=== PATIENT | female | born 1965 | race African-American/Black ===

== ENCOUNTER 2018-07-10 23:46 | Inpatient (IN) | payer MEDICAID, OTHER ==
[~2018-07-10] VITALS: Ht 165.1 cm; Wt 92.3 kg
[~2018-07-10 23:46] MED LIST: CLON0.1T; LASIX; LISINOPRIL; LOVASTATIN; NORMADYNE; PROCARDIA
[2018-07-11] MEDS ORDERED: ALBUTEROL (0.083%) 2.5MG/3ML NEB HHN STA (00:04)
[2018-07-11] MEDS ORDERED: IPRATROPIUM BROMIDE (0.02%) 0.5MG/2.5ML NEB HHN STA (00:04)
[2018-07-11 00:37] LABS: BASOPHILS % 0.6 % (0.0-2.0); EOSINOPHILS % 2.3 % (0.0-5.0); HEMOGLOBIN. 14.3 g/dL (12.0-16.0); LYMPHOCYTES % 33.1 % (20.0-50.0); MEAN CORPUSCULAR HEMOGLOBIN 29.2 pg (28.0-32.0); MEAN CORPUSCULAR VOLUME 85.6 fL (81.0-99.0); MEAN PLATELET VOLUME 9.7 fl (7.4-10.4); MONOCYTES % 7.7 % (2.0-8.0); NEUTROPHILS % 56.3 % (40.0-76.0); PLATELET 227 x1000/uL (130-400); RED CELL DISTRIBUTION WIDTH 14.9 % (11.6-14.6)
[2018-07-11 00:43] LABS: CHLORIDE 109 mEq/L (98-107)
[2018-07-11 01:00] LABS: D-DIMER 2.03 mg/L FEU (<0.50); INR 1.1; PARTIAL THROMBOPLASTIN TIME 25.1 sec (23.4-31.0); PROTHROMBIN TIME 10.7 sec (9.1-11.1)
[2018-07-11] MEDS ORDERED: FUROSEMIDE 40MG/4ML VIAL IVP NR (02:15)
[2018-07-11] MEDS ORDERED: IOHEXOL-350 100 ML BOTTLE ONE (03:40)
[2018-07-11] MEDS ORDERED: CEFTRIAXONE 1 G PREMIX 50 ML IV NR (04:00)
[2018-07-11] MEDS ORDERED: AZITHROMYCIN 500 MG in DEXT 5% WATER 250 ML IV NR (04:00)
[2018-07-11] MEDS ORDERED: CLONIDINE 0.1MG TABLET PO PRN ×2 (06:30→10:30)
[2018-07-11] MEDS ORDERED: DIPHENHYDRAMINE 50MG/ML VIAL IV PRN (10:30)
[2018-07-11] MEDS ORDERED: ACETAMINOPHEN 650MG SUPP PR PRN (10:30)
[2018-07-11] MEDS ORDERED: ONDANSETRON HCL 4MG/2ML INJ IV PRN (10:30)
[2018-07-11] MEDS ORDERED: HYDROCODONE/ACETAMINOPHEN 5/325MG TABLET PO PRN (10:30)
[2018-07-11] MEDS ORDERED: ACETAMINOPHEN 325MG TABLET PO PRN (10:30)
[2018-07-11] MEDS ORDERED: IPRATROPIUM/ALBUTEROL 0.5-3(2.5)MG/3ML NEB INH PRN (10:30)
[2018-07-11] MEDS ORDERED: MAGNESIUM/ALUMINUM HYDROXIDE/SIMETHICONE 30ML UDC PO PRN (10:30)
[2018-07-11] MEDS ORDERED: NA PHOS,M-B/NA PHOS,DI-BA ENEMA 118ML PR PRN (10:30)
[2018-07-11] MEDS ORDERED: FUROSEMIDE 40MG/4ML VIAL IV NR (11:30)
[2018-07-11] MEDS: METHYLPREDNISOLONE SOD SUCC 40 MG/ML VIAL IV SCH (12:21)
[2018-07-11] MEDS ORDERED: AMLO5TAB88 MT (12:32)
[2018-07-11] MEDS ORDERED: HYDR-459 MT ×2 (12:32→17:19)
[2018-07-11] MEDS: IPRATROPIUM/ALBUTEROL 0.5-3(2.5)MG/3ML NEB INH SCH ×2 (12:35→20:08)
[2018-07-11 14:04] LABS: BG BASE EXCESS 1.6 mmol/L (-2.0-2.0); BG CARBOXYHEMOGLOBIN 1.4 % (0.5-1.5); BG DEOXYHEMOGLOBIN 6.7 % (0.0-5.0); BG FRACTION INSPIRED OXYGEN 21; BG HCO3 ACT 22.6 mmol/L (22.0-26.0); BG METHEMOGLOBIN 0.3 % (0.0-1.5); BG OXYGEN SATURATION 93.2 % (92.0-98.5); BG OXYHEMOGLOBIN 91.6 % (94.0-97.0); BG PH 7.541 (7.350-7.450); BG SAMPLE SITE RIGHT RADIAL; BG TOTAL HEMOGLOBIN 15.9 g/dL (12.0-18.0); BG VENT MODE ROOM AIR
[2018-07-11 14:52] LABS: HEPATITIS B SURFACE ANTIGEN NEGATIVE
[2018-07-11 15:22] LABS: HEPATITIS A AB IGM NEGATIVE (NEGATIVE)
[2018-07-11 17:21] VITALS: BP 139/94
[2018-07-11] MEDS ORDERED: ENOXAPARIN 40MG/0.4ML SYR SUBCUT SCH (17:30)
[2018-07-11] MEDS: ENOXAPARIN 30MG/0.3ML SYR SUBCUT SCH (18:16)
[2018-07-11 20:00] VITALS: BP 139/83
[2018-07-11] MEDS: CARVEDILOL 3.125 MG TABLET PO SCH (20:32)
[2018-07-12] VITALS (7 sets, daily range): BP systolic 128–147; BP diastolic 81–91
[2018-07-12] MEDS: METHYLPREDNISOLONE SOD SUCC 40 MG/ML VIAL IV SCH ×2 (01:35→13:19)
[2018-07-12] MEDS: IPRATROPIUM/ALBUTEROL 0.5-3(2.5)MG/3ML NEB INH SCH ×3 (02:17→15:45)
[2018-07-12] MEDS: ENOXAPARIN 30MG/0.3ML SYR SUBCUT SCH ×2 (05:27→17:35)
[2018-07-12 06:12] LABS: CLARITY URINE CLEAR (CLEAR); COLOR URINE YELLOW (YELLOW); KETONES URINE NEGATIVE (NEGATIVE); LEUKOCYTE ESTERASE URINE NEGATIVE (NEGATIVE); NITRITE URINE NEGATIVE (NEGATIVE); OCCULT BLOOD URINE NEGATIVE (NEGATIVE); PROTEIN URINE 2+ (NEGATIVE); SPECIFIC GRAVITY URINE 1.017 (1.005-1.030)
[2018-07-12 06:30] LABS: *BENZODIAZEPINES SCREEN URINE NEGATIVE (NEGATIVE); *COCAINE SCREEN URINE NEGATIVE (NEGATIVE); METHADONE URINE SCREEN NEGATIVE (NEGATIVE)
[2018-07-12 06:31] LABS: *AMPHETAMINES SCREEN URINE NEGATIVE (NEGATIVE); *BARBITURATES SCREEN URINE NEGATIVE (NEGATIVE); CANNABINOID URINE SCREEN NEGATIVE (NEGATIVE); OPIATES URINE SCREEN PRESUMTIVE POSITIVE (NEGATIVE); PHENCYCLIDINE URINE SCREEN NEGATIVE (NEGATIVE)
[2018-07-12 07:00] LABS: CHLORIDE 103 mEq/L (98-107)
[2018-07-12 07:14] LABS: T4 FREE 1.37 ng/dL (0.76-1.46)
[2018-07-12 07:16] LABS: HDL CHOLESTEROL 52 mg/dL (40-59)
[2018-07-12 07:23] LABS: BASOPHILS % 0.2 % (0.0-2.0); HEMATOCRIT. 45.8 % (36.0-48.0); HEMOGLOBIN. 15.2 g/dL (12.0-16.0); LYMPHOCYTES % 8.2 % (20.0-50.0); MEAN CORPUSCULAR HEMOGLOBIN 28.6 pg (28.0-32.0); MEAN CORPUSCULAR VOLUME 86.4 fL (81.0-99.0); MEAN PLATELET VOLUME 10.4 fl (7.4-10.4); MONOCYTES % 2.8 % (2.0-8.0); NEUTROPHILS % 88.8 % (40.0-76.0); PLATELET 245 x1000/uL (130-400); RED BLOOD CELL COUNT 5.31 mill/uL (4.2-5.4); RED CELL DISTRIBUTION WIDTH 14.7 % (11.6-14.6)
[2018-07-12 07:30] LABS: LDL CHOLESTEROL 115 mg/dL (5-100)
[2018-07-12] MEDS ORDERED: FOLIC ACID 1MG TABLET PO SCH (09:00)
[2018-07-12] MEDS ORDERED: LOSARTAN POTASSIUM 25 MG TABLET PO SCH (09:00)
[2018-07-12] MEDS ORDERED: MULTIVITAMINS,THER W-MINERALS TABLET PO SCH (09:00)
[2018-07-12] MEDS ORDERED: FUROSEMIDE 40MG/4ML VIAL IV SCH (09:00)
[2018-07-12] MEDS ORDERED: THIAMINE HCL 100MG TABLET PO SCH (09:00)
[2018-07-12] MEDS: CARVEDILOL 3.125 MG TABLET PO SCH ×2 (09:00→13:20)
[2018-07-12] MEDS ORDERED: ASPIRIN 81MG TABLET PO SCH (09:00)
[2018-07-12] MEDS ORDERED: ATOR10TA PO (20:58)
[2018-07-12] MEDS ORDERED: FURO-151 PO (20:59)
[2018-07-12] MEDS ORDERED: ATORVASTATIN CALCIUM 10MG TABLET PO SCH (21:00)
[2018-07-12] MEDS ORDERED: LOSA25TA3 PO (21:00)
[2018-07-12] MEDS ORDERED: ASPI-1159 PO (21:02)
[2018-07-12] MEDS ORDERED: ALBU4TAB6 PO (21:04)
[2018-07-12] MEDS ORDERED: COR3 PO (21:05)
[2018-07-13] MEDS ORDERED: METHYLPREDNISOLONE SOD SUCC 40 MG/ML VIAL IV SCH (09:00)
== END 2018-07-12 21:58 | disposition home or self-care (01) | DRG 293 ==
LOC: ER 23:46 → 8WST 07-11 02:16 → EDBEDREQ 07-11 02:17 → EDBEDREQTM 07-11 02:17 → ENRESERV 07-11 16:23
PROVIDERS: ADMIT Internal Medicine; ATTEND Internal Medicine
DX: I11.0 Hypertensive heart disease with heart failure (principal); E86.0 Dehydration; F17.210 Nicotine dependence, cigarettes, uncomplicated; J45.909 Unspecified asthma, uncomplicated; R73.9 Hyperglycemia, unspecified; I50.43 Acute on chronic combined systolic (congestive) and diastolic (congestive) heart failure; R06.03 Acute respiratory distress; Z79.899 Other long term (current) drug therapy
CPT/HCPCS: 36415; 36600; 71045; 71275; 80061; 80305; 82375; 82805; 83036; 83605; 83735; 83880; 84439; 84443; 84484; 85379; 86705; 86709; 86803; 87340; 87804; 93005; 93306; 93970; 94640; 96365; 96375; 97162; 99285; J0456; J0696; J1650; J1940; J2920; J7060; J7611; J7620; Q9967

== ENCOUNTER 2022-03-16 23:46 | Emergency (ER) | payer OTHER, SELFPAY ==
[~2022-03-16] VITALS: Ht 170.2 cm; Wt 102.0 kg
[2022-03-17] MEDS ORDERED: METHYLPREDNISOLONE SOD SUCC 125 MG/2 ML VIAL IV STA (00:23)
[2022-03-17] MEDS ORDERED: IPRATROPIUM BROMIDE (0.02%) 0.5MG/2.5ML NEB HHN STA (00:23)
[2022-03-17] MEDS ORDERED: ALBUTEROL (0.083%) 2.5MG/3ML NEB HHN STA (00:23)
[2022-03-17 00:52] LABS: BASOPHILS % 0.7 % (0.0-2.0); EOSINOPHILS % 4.7 % (0.0-5.0); HEMATOCRIT. 40.9 % (36.0-48.0); HEMOGLOBIN. 13.6 g/dL (12.0-16.0); LYMPHOCYTES % 38.8 % (20.0-50.0); MEAN CORPUSCULAR HEMOGLOBIN 29.5 pg (28.0-32.0); MEAN CORPUSCULAR VOLUME 88.5 fL (81.0-99.0); MEAN PLATELET VOLUME 9.6 fl (7.4-10.4); MONOCYTES % 6.6 % (2.0-8.0); NEUTROPHILS % 49.2 % (40.0-76.0); PLATELET 182 x1000/uL (130-400); RED BLOOD CELL COUNT 4.62 mill/uL (4.2-5.4); RED CELL DISTRIBUTION WIDTH 14.4 % (11.6-14.6)
[2022-03-17 00:58] LABS: CHLORIDE 111 mEq/L (98-107)
[2022-03-17 01:01] VITALS: BP 161/88
[2022-03-17] MEDS ORDERED: P50 MT (01:44)
[2022-03-17] MEDS ORDERED: PREDNISONE 20MG TABLET PO ONE (01:45)
== END 2022-03-17 01:52 | disposition home or self-care (01) ==
LOC: ER 23:46
DX: J98.01 Acute bronchospasm (principal); I11.0 Hypertensive heart disease with heart failure; I50.9 Heart failure, unspecified
CPT/HCPCS: 36415; 71045; 80053; 83880; 85025; 93005; 94644; 99285; J7512; Z7610